=== PATIENT | female | born 1935 | race Caucasian/White ===

== ENCOUNTER → 2023-10-07 10:21 | Outpatient (REF) | payer OTHER, SELFPAY | LOC: RAD 10:21 | PROVIDERS: ATTENDING PHYSICIAN Surgery Vascular Surgery; FAMILY PHYSICIAN Family Medicine; REFERRING PHYSICIAN Internal Medicine Hematology & Oncology | DX: I71.20 Thoracic aortic aneurysm, without rupture, unspecified (principal) | CPT/HCPCS: 71275; Q9967 ==

== ENCOUNTER → 2024-10-12 13:25 | Outpatient (REF) | payer OTHER, SELFPAY | LOC: DHVS 13:25 | PROVIDERS: ATTENDING PHYSICIAN Surgery Vascular Surgery; FAMILY PHYSICIAN Family Medicine | DX: I71.20 Thoracic aortic aneurysm, without rupture, unspecified (principal) | CPT/HCPCS: 71275; 93922; Q9967 ==